=== PATIENT | female | born 1975 | race Caucasian/White ===

== ENCOUNTER 2017-04-17 17:54 | Emergency (ER) | payer MEDICAID ==
[~2017-04-17] VITALS: Ht 167.6 cm; Wt 68.0 kg
[2017-04-17 17:55] VITALS: BP_SYST 149
[2017-04-17 19:10] VITALS: BP_SYST 140
== END 2017-04-17 19:10 | disposition home or self-care (01) ==
LOC: SED 17:54
DX: J01.00 Acute maxillary sinusitis, unspecified (principal); H61.21 Impacted cerumen, right ear; I10 Essential (primary) hypertension; Z88.5 Allergy status to narcotic agent; Z88.6 Allergy status to analgesic agent
CPT/HCPCS: 81025; 99283

== ENCOUNTER 2017-09-12 17:12 | Emergency (ER) | payer MEDICAID ==
[~2017-09-12] VITALS: Ht 167.6 cm; Wt 65.8 kg
[2017-09-12 17:25] VITALS: BP_SYST 126
[2017-09-12] MEDS ORDERED: HYDROCHLOROTHIAZIDE 12.5 MG CAPSULE (HCTZ) PO ONE (20:45)
[2017-09-12] MEDS ORDERED: LISINOPRIL 10 MG TABLET (PRINIVIL) PO ONE (21:30)
[2017-09-12 22:15] VITALS: BP_SYST 138
== END 2017-09-12 22:15 | disposition home or self-care (01) ==
LOC: SED 17:12
DX: H11.32 Conjunctival hemorrhage, left eye (principal); I10 Essential (primary) hypertension; Z88.5 Allergy status to narcotic agent; Z88.6 Allergy status to analgesic agent
CPT/HCPCS: 99283